=== PATIENT | female | born 1985 | race American Indian/Alaskan Native ===

== ENCOUNTER 2019-01-13 15:48 | Emergency (ER) | payer SELFPAY ==
[2019-01-13 15:58] VITALS: BP 147/93
--- NOTE | 2019-01-13 15:58 | Event Note ---
ED Screening Note ED Screening Note: pt presents for upper back pain that began 3 hours ago feels like a heaviness, states that when she takes a deep breath pain goes down the back no fall, injury, or trauma no numbness or weakness no PMHx LNMP: 01/08/19 no daily meds allergy to morphine: itching,rash +smoker +drinker no drug use This initial assessment/diagnostic orders/clinical plan/treatment(s) is/are subject to change based on patients health status, clinical progression and re- assessment by fellow clinical providers in the ED. Further treatment and workup at subsequent clinical providers discretion. Patient/guardian urged not to elope from the ED as their condition may be serious if not clinically assessed and managed. Initial orders include: XR T-spine
--- NOTE | 2019-01-13 17:22 | XRay Report ---
PROCEDURE: XR SPINE THORACIC 3V TECHNIQUE: AP and lateral views of the thoracic spine. HISTORY: upper back pain COMPARISONS: None . FINDINGS: The vertebral body heights and disc spaces are well maintained. The alignment is normal. Pedicles are intact bilaterally at all levels. The paraspinal soft tissues are unremarkable. IMPRESSION: Normal thoracic spine. This document is electronically signed by Blanca Parra MD., January 13 2019 05:20:50 PM ET
[2019-01-13] MEDS ORDERED: DELTASONE PO ONE (17:32)
[2019-01-13] MEDS ORDERED: TORADOL IM ONE (17:32)
--- NOTE | 2019-01-13 17:40 | Emergency Department Report ---
ED Back Pain/Injury HPI - General Chief Complaint: Back Pain/Injury Stated Complaint: BACK PAIN/ELI Time Seen by Provider: 01/13/19 15:56 Source: patient Limitations: No Limitations - History of Present Illness Initial Comments: This is a 33-year-old female nontoxic, well nourished in appearance, no acute signs of distress presents to the ED with c/o of acute on chronic intermittent upper back pain. Patient stated that the past 2 days he was moving and developed this pain. Patient denies any radiation of pain. Patient stated has worse pain with movement and deep breathes otherwise denies any SOB and ELI. Patient denies any trauma. Denies any bladder or bowel instability. Patient denies any urinary symptoms. Denies any fever, chills, nausea, vomiting, headache, stiff neck, chest pain or shortness of breath. Patient denies any numbness or tingling. Allergies to morphine with no significant PMH. MD Complaint: back pain -: days(s) Similar Symptoms Previously: Yes Radiation: none Severity: mild Severity scale (0 -10): 3 Quality: aching Consistency: intermittent Improves With: sitting upright, other (rest) Worsens With: movement, deep breaths/cough Context: while lifting, turning/twisting Associated Symptoms: denies other symptoms. denies: confusion, weakness, chest pain, numbness, difficulty walking, cough, difficulty urinating, diaphoresis, incontinence, fever/chills, constipation, headaches, abdominal pain, loss of appetite, malaise, nausea/vomiting, rash, seizure, shortness of breath, syncope - Related Data Previous Rx's Medication Instructions Recorded Last Taken Type Cyclobenzaprine [Flexeril] 10 mg PO QHS PRN #10 tablet 01/13/19 Unknown Rx Ibuprofen [Motrin] 600 mg PO Q8H PRN #20 tablet 01/13/19 Unknown Rx Allergies Allergy/AdvReac Type Severity Reaction Status Date / Time morphine Allergy Hives Verified 01/13/19 15:49 ED Review of Systems ROS: Stated complaint: BACK PAIN/ELI Other details as noted in HPI Constitutional: denies: chills, fever Eyes: denies: eye pain, eye discharge, vision change ENT: denies: ear pain, throat pain Respiratory: denies: cough, shortness of breath, wheezing Cardiovascular: denies: chest pain, palpitations Endocrine: no symptoms reported Gastrointestinal: denies: abdominal pain, nausea, diarrhea Genitourinary: denies: urgency, dysuria, discharge Musculoskeletal: back pain. denies: joint swelling, arthralgia Skin: denies: rash, lesions Neurological: denies: headache, weakness, paresthesias Psychiatric: denies: anxiety, depression Hematological/Lymphatic: denies: easy bleeding, easy bruising ED Past Medical Hx - Past Medical History Previous Medical History?: No - Surgical History Additional Surgical History: BREAST REDUCTION KNEE SURGER CONE BIOPSY - Social History Smoking Status: Current Every Day Smoker Substance Use Type: Alcohol - Medications Home Medications: Home Medications Medication Instructions Recorded Confirmed Last Taken Type Cyclobenzaprine [Flexeril] 10 mg PO QHS PRN #10 tablet 01/13/19 Unknown Rx Ibuprofen [Motrin] 600 mg PO Q8H PRN #20 tablet 01/13/19 Unknown Rx ED Physical Exam - General Limitations: No Limitations General appearance: alert, in no apparent distress - Head Head exam: Present: atraumatic, normocephalic - Eye Eye exam: Present: normal appearance - Neck Neck exam: Present: normal inspection, full ROM. Absent: tenderness, meningismus, lymphadenopathy - Respiratory Respiratory exam: Present: normal lung sounds bilaterally. Absent: respiratory distress, wheezes, rales, rhonchi, stridor, chest wall tenderness, accessory muscle use, decreased breath sounds, prolonged expiratory - Cardiovascular Cardiovascular Exam: Present: regular rate, normal rhythm, normal heart sounds. Absent: bradycardia, tachycardia, irregular rhythm, systolic murmur, diastolic murmur, rubs, gallop - Extremities Exam Extremities exam: Present: normal inspection, full ROM - Back Exam Back exam: Present: normal inspection, full ROM, paraspinal tenderness (throacic paraspinal area). Absent: tenderness, CVA tenderness (R), CVA tenderness (L), muscle spasm, vertebral tenderness, rash noted - Expanded Back Exam Expanded Back exam: Negative Straight Leg Raising: Left, Right - Neurological Exam Neurological exam: Present: alert, oriented X3, normal gait - Psychiatric Psychiatric exam: Present: normal affect, normal mood - Skin Skin exam: Present: warm, dry, intact, normal color. Absent: rash ED Course Vital Signs 01/13/19 15:56 Temperature 97.9 F Pulse Rate 86 Respiratory 20 Rate Blood Pressure 147/93 O2 Sat by Pulse 98 Oximetry - Reevaluation(s) Reevaluation #1: 01/13/19 17:38 Patient is speaking in full sentences with no signs of distress noted. ED Medical Decision Making - Medical Decision Making This is a 33-year-old female that presents with upper back strain. Patient is stable was examined by me. There is no spinal tenderness. There is no cauda equina syndrome during examination. No bladder or bowel instability. Wells creteris for PE/DVT: 0.0 points Low risk group: 1.3% chance of PE in an ED population. Another study assigned scores ? 4 as PE Unlikely and had a 3% incidence of PE. Patient received Toradol 60 mg IM and predenisone 60 mg in the ED which stated that her symptoms has resolved and subsided. Patient is discharged with muscle relaxant and Motrin. Patient was instructed not to operate any machinery while taking muscle relaxant as they cause her drowsiness. Patient was referred to Follow-up with a primary care doctor in 3-5 days or if symptoms worsen and continue return to emergency room as soon as possible. At time of discharge, the patient does not seem toxic or ill in appearance. No acute signs of distress noted. Patient agrees to discharge treatment plan of care. No further questions noted by the patient. This chart is dictated with using [employer] Critical care attestation.: If time is entered above; I have spent that time in minutes in the direct care of this critically ill patient, excluding procedure time. ED Disposition Clinical Impression: Upper back strain Disposition: DC-01 TO HOME OR SELFCARE Is pt being admited?: No Does the pt Need Aspirin: No Condition: Stable Instructions: Muscle Strain (ED), Cyclobenzaprine (By mouth) Additional Instructions: Follow-up with your primary care doctor in 3-5 days or if symptoms worsen such as bladder or bowel stability, chest pain, short of breath, numbness or tingling sensation in extremities, headache, dizziness, visual changes, nausea vomiting, or abdominal pain, return back to emergency room as was possible. Take ibuprofen and Flexeril as prescribed. Do not operate heavy machinery while taking Flexeril due to sedation Prescriptions: Cyclobenzaprine [Flexeril] 10 mg PO QHS PRN #10 tablet PRN Reason: Muscle Spasm Ibuprofen [Motrin] 600 mg PO Q8H PRN #20 tablet PRN Reason: Pain Referrals: PRIMARY CARE, [Referring] - 3-5 Days CATRINA COREY MD [Staff Physician] - 3-5 Days [facility] [Outside] - 3-5 Days [facility] [Outside] - 3-5 Days Forms: Work/School Release Form(ED)
== END 2019-01-13 18:39 | disposition home or self-care (01) ==
LOC: ED 15:48
DX: S29.012A Strain of muscle and tendon of back wall of thorax, initial encounter (principal); Z88.6 Allergy status to analgesic agent; X50.9XXA Other and unspecified overexertion or strenuous movements or postures, initial encounter; Y93.89 Activity, other specified; Y92.89 Other specified places as the place of occurrence of the external cause; Y99.8 Other external cause status
CPT/HCPCS: 72072; 96372; 99283; J1885; J7512

== ENCOUNTER 2019-05-14 11:15 | Emergency (ER) | payer SELFPAY ==
[2019-05-14 11:22] VITALS: BP 128/86
[2019-05-14] MEDS ORDERED: IBUPROFEN 800 MG TAB PO ONE (11:38)
--- NOTE | 2019-05-14 11:50 | Emergency Department Report ---
Upper Extremity - HPI Chief Complaint: Extremity Injury, Upper Stated Complaint: LFT PINKY SWELLING/PAIN Time Seen by Provider: 05/14/19 11:33 Upper Extremity: Left Hand, Left Little Finger Occurred When: Today Mechanism: Hit with Object Severity: severe Symptoms: Yes Pain with Movement, Yes Deformity, Yes Limited Range of Movement, Yes Swelling, No Numbness, No Weakness, No Bruising/Ecchymosis, No Laceration or Abrasion Other History: 33-year-old -[place] female presents to the emergency room complaining of left hand fifth digit pain. Patient reports that she was playing basketball and when she jumped LOC the ball the ball injured her hand. Patient reports no past medical history does not take any medications on a daily basis and has an allergy to morphine. Patient's had past surgical history of anterior cruciate ligament repair and breast reduction. Patient reports her last menstrual period was 05/04/2019. Patient reports her pain as a 10 out of 10. ED Review of Systems ROS: Stated complaint: LFT PINKY SWELLING/PAIN Other details as noted in HPI Comment: All other systems reviewed and negative ED Past Medical Hx - Past Medical History Previous Medical History?: No - Surgical History Past Surgical History?: Yes Additional Surgical History: BREAST REDUCTION KNEE SURGER CONE BIOPSY, ACL RECONSTRUCTION - Social History Smoking Status: Current Every Day Smoker Substance Use Type: Alcohol - Medications Home Medications: Home Medications Medication Instructions Recorded Confirmed Last Taken Type Cyclobenzaprine [Flexeril] 10 mg PO QHS PRN #10 tablet 01/13/19 Unknown Rx Ibuprofen [Motrin 600 MG tab] 600 mg PO Q8H PRN #20 tablet 05/14/19 Unknown Rx Upper Extremity Exam - Exam General: Vital signs noted. No distress. Alert and acting appropriately. ED Course Vital Signs 05/14/19 11:17 Temperature 97.7 F Pulse Rate 105 H Respiratory 18 Rate Blood Pressure 128/86 O2 Sat by Pulse 99 Oximetry - Orthopedic Fracture Reduction Fracture #1 Consent Obtained: verbal consent Time Out Performed: Yes Side: left Fracture Reduction Location: finger Analgesia: digital block Technique: direct manipulation Post-Reduction Neuro Exam: intact Splint Applied: Yes Patient Tolerated Procedure: well ED Medical Decision Making - Radiology Data Radiology results: report reviewed Patient: MONICA FISHER MR#: [id number] : 1985 Acct:[id number] Age/Sex: 33 / F ADM Date: 05/14/19 Loc: ED Attending Dr: Ordering Physician: JHOAN FISHER Date of Service: 05/14/19 Procedure(s): XR hand 3+V LT Accession Number(s): [id number] cc: JHOAN FISHER Fluoro Time In Minutes: LEFT HAND 3 VIEWS INDICATION / CLINICAL INFORMATION: left hand injury with pain and swelling. COMPARISON: None available. FINDINGS: There is a tiny avulsion fracture fragment along the volar aspect of the little finger PIP joint. The middle phalanx is dislocated posteriorly with respect to the proximal phalanx. IMPRESSION: Fracture dislocation of little finger PIP joint. Post reduction radiographs recommended. Signer Name: Jose Beasley MD Signed: 05/14/2019 12:18 PM Workstation Name: [id number] Transcribed By: TL Dictated By: Jose Beasley MD Electronically Authenticated By: Jose Beasley MD Signed Date/Time: 05/14/191217 DD/ 16 TD/TT: Patient: MONICA FISHER MR#: [id number] : 1985 Acct:[id number] Age/Sex: 33 / F ADM Date: 05/14/19 Loc: ED Attending Dr: Ordering Physician: JHOAN FISHER Date of Service: 05/14/19 Procedure(s): XR finger(s) 2+V LT Accession Number(s): [id number] cc: JHOAN FISHER Fluoro Time In Minutes: LEFT LITTLE FINGER, 3 VIEWS, POSTREDUCTION INDICATION / CLINICAL INFORMATION: post reduction x-ray. COMPARISON: Left hand radiographs from earlier today FINDINGS: Post reduction radiographs of the little finger shows successful reduction of the PIP joint dislocation. There are a few tiny pieces of avulsed bone surrounding the PIP joint of the little finger. No additional fractures are noted. Alignment is normal. IMPRESSION: There are a few tiny avulsion fractures on the radial aspect of the PIP joint. Alignment is normal. Signer Name: Polly Graves MD Signed: 05/14/2019 2:46 PM Workstation Name: [id number] Transcribed By: Dictated By: Polly Graves MD Electronically Authenticated By: Polly Graves MD Signed Date/Time: 05/14/191445 DD/ 43 TD/TT: - Medical Decision Making 33-year-old -[place] female presents to the emergency room complaining of left hand fifth digit pain. Patient reports that she was playing basketball and when she jumped LOC the ball the ball injured her hand. Patient reports no past medical history does not take any medications on a daily basis and has an allergy to morphine. Patient's had past surgical history of anterior cruciate ligament repair and breast reduction. Patient reports her last menstrual period was 05/04/2019. Patient reports her pain as a 10 out of 10. X-ray of the left hand has been ordered. Ibuprofen 800 mg for pain management has been ordered. Critical care attestation.: If time is entered above; I have spent that time in minutes in the direct care of this critically ill patient, excluding procedure time. ED Disposition Clinical Impression: Finger fracture, left Disposition: DC-01 TO HOME OR SELFCARE Is pt being admited?: No Does the pt Need Aspirin: No Condition: Stable Instructions: Finger Fracture (ED) Prescriptions: Ibuprofen [Motrin 600 MG tab] 600 mg PO Q8H PRN #20 tablet PRN Reason: Pain Referrals: KARIS GAN MD [Staff Physician] - 3-5 Days Forms: Work/School Release Form(ED)
--- NOTE | 2019-05-14 12:23 | XRay Report ---
LEFT HAND 3 VIEWS INDICATION / CLINICAL INFORMATION: left hand injury with pain and swelling. COMPARISON: None available. FINDINGS: There is a tiny avulsion fracture fragment along the volar aspect of the little finger PIP joint. The middle phalanx is dislocated posteriorly with respect to the proximal phalanx. IMPRESSION: Fracture dislocation of little finger PIP joint. Post reduction radiographs recommended. Signer Name: Jose Beasley MD Signed: 05/14/2019 12:18 PM Workstation Name: [id number]
[2019-05-14] MEDS ORDERED: LIDOCAINE (1%) 10 MG/1 ML VIAL 20 ML MDV INFILTRATI ONE (12:57)
--- NOTE | 2019-05-14 14:50 | XRay Report ---
LEFT LITTLE FINGER, 3 VIEWS, POSTREDUCTION INDICATION / CLINICAL INFORMATION: post reduction x-ray. COMPARISON: Left hand radiographs from earlier today FINDINGS: Post reduction radiographs of the little finger shows successful reduction of the PIP joint dislocati on. There are a few tiny pieces of avulsed bone surrounding the PIP joint of the little finger. No ad ditional fractures are noted. Alignment is normal. IMPRESSION: There are a few tiny avulsion fractures on the radial aspect of the PIP joint. Alignment is normal. Signer Name: Polly Graves MD Signed: 05/14/2019 2:46 PM Workstation Name: [id number]
== END 2019-05-14 15:04 | disposition home or self-care (01) ==
LOC: ED 11:15
DX: S62.617A Displaced fracture of proximal phalanx of left little finger, initial encounter for closed fracture (principal); F17.200 Nicotine dependence, unspecified, uncomplicated; Z98.890 Other specified postprocedural states; Z79.899 Other long term (current) drug therapy; Z88.6 Allergy status to analgesic agent; X58.XXXA Exposure to other specified factors, initial encounter; Y93.67 Activity, basketball; Y92.89 Other specified places as the place of occurrence of the external cause; Y99.8 Other external cause status
CPT/HCPCS: 99283

== ENCOUNTER 2019-08-06 11:52 | Emergency (ER) | payer SELFPAY ==
[2019-08-06 13:21] VITALS: BP 133/97
== END 2019-08-06 15:51 | disposition left against medical advice (07) ==
LOC: ED 11:52
DX: M54.6 Pain in thoracic spine (principal); Z53.21 Procedure and treatment not carried out due to patient leaving prior to being seen by health care provider

== ENCOUNTER 2020-11-14 09:43 | Emergency (ER) | payer SELFPAY ==
[2020-11-14 09:51] VITALS: BP 127/93
--- NOTE | 2020-11-14 11:31 | XRay Report ---
CHEST PA AND LATERAL VIEWS INDICATION: chest pain. COMPARISON: None FINDINGS: Support devices: None Heart: Normal Lungs/Pleura: Increased parenchymal density in the lingula, worrisome for developing pneumonia. Right lung is clear. No pleural fluid. IMPRESSION: 1. Lingular disease, worrisome for developing pneumonia. Suggest close follow-up. Signer Name: Ham Coe MD Signed: 11/14/2020 11:27 AM Workstation Name: [id number]
--- NOTE | 2020-11-14 11:43 | Emergency Department Report ---
Minor Respiratory - HPI Chief Complaint: Chest Pain Stated Complaint: CONGESTION, FEVER Time Seen by Provider: 11/14/20 10:51 Duration: 2 Days Pain Location: Chest Severity: mild Minor Respiratory: Yes Sore Throat, Yes Able to Tolerate Fluids, Yes Cough, Yes Shortness of Breath, No Rhinorrhea, No Ear Pain, No Sick Contacts, No Hemoptysis, No Chest Pain, No Fever Other History: 35 YO ASTHMATIC COMES TO ER WITH COUGH AND INC WHEEZING FOR 2 DAYS DESPITE HER USUAL MEDS. NO FEVER. NO CHILLS. NO COVID19 KNOWN EXPOSURE. SOB IS WITH WHEEZING. PAIN IS WITH COUGH. AMBULATORY AND NON ILL APPEARING ON ARRIVAL TO ER. ED Review of Systems ROS: Stated complaint: CONGESTION, FEVER Other details as noted in HPI Comment: All other systems reviewed and negative ED Past Medical Hx - Past Medical History Hx GERD: Yes Additional medical history: cervical ca - Surgical History Additional Surgical History: BREAST REDUCTION KNEE SURGER CONE BIOPSY, ACL REC ONSTRUCTION - Family History Family history: no significant - Social History Smoking Status: Current Every Day Smoker Substance Use Type: None - Medications Home Medications: Home Medications Medication Instructions Recorded Confirmed Last Taken Type Cyclobenzaprine [Flexeril] 10 mg PO QHS PRN #10 tablet 01/13/19 Unknown Rx Ibuprofen [Motrin 600 MG tab] 600 mg PO Q8H PRN #20 tablet 05/14/19 Unknown Rx Albuterol Sulfate [Proair 90 mcg IH QID PRN #1 aer.pow.ba 11/14/20 Unknown Rx Respiclick] Azithromycin [Zithromax Z-ZANDER] 250 mg PO DAILY #6 tablet 11/14/20 Unknown Rx Benzonatate [Tessalon Perles] 100 mg PO Q12H PRN #12 capsule 11/14/20 Unknown Rx Cetirizine HCl [ZyrTEC] 10 mg PO DAILY #30 capsule 11/14/20 Unknown Rx Fluticasone [Flonase] 1 spray NS QDAY #1 bottle 11/14/20 Unknown Rx predniSONE [Deltasone] 20 mg PO DAILY #5 tablet 11/14/20 Unknown Rx Minor Respiratory Exam - Exam General: Vital signs noted. No distress. Alert and acting appropriately. HEENT: Yes Moist Mucous Membranes, No Pharyngeal Erythema, No Pharyngeal Exudates, No Rhinorrhea, No Conjuctival Injection, No Frontal Tenderness, No Maxillary Tenderness Ear: Neither TM Bulge, Neither TM Erythema, Neither EAC Pain, Neither EAC Discharge Neck: Yes Supple, No Adenopathy Lungs: Yes Good Air Exchange, Yes Ronchi, No Wheezes, No Stridor, No Cough, No Labored Respirations, No Retractions, No Use of Accessory Muscles, No Other Abnormal Lung Sounds Heart: Yes Regular, No Murmur Abdomen: Yes Normal Bowel Sounds, No Tenderness, No Peritoneal Signs Skin: No Rash, No Edema Neurologic: Alert and oriented, no deficits. Musculoskeletal: Unremarkable. ED Course Vital Signs 11/14/20 09:48 Temperature 99.0 F Pulse Rate 99 H Respiratory 16 Rate Blood Pressure 127/93 O2 Sat by Pulse 98 Oximetry ED Medical Decision Making - EKG Data EKG shows normal: sinus rhythm Rate: normal - EKG Data When compared to previous EKG there are: no significant change Interpretation: no acute changes - Radiology Data Radiology results: report reviewed, image reviewed XRAY NEG OXYGEN SAT SP WALKING 100 ON ROOM AIR 12 LEAD NORMAL DC HOME WITH DC PLAN OF CARE INCLUDING PCP FOLLOW UP REFERRALS GIVEN Vital Signs 11/14/20 09:48 Temperature 99.0 F Pulse Rate 99 H Respiratory 16 Rate Blood Pressure 127/93 O2 Sat by Pulse 98 Oximetry PT VERBALIZES UNDERSTANDING OF PLAN OF CARE - Differential Diagnosis ASTHMA AE/ PNA/BRONCHITIS Critical care attestation.: If time is entered above; I have spent that time in minutes in the direct care of this critically ill patient, excluding procedure time. ED Disposition Clinical Impression: URI (upper respiratory infection), Bronchitis, Smoker, Asthma with acute exacerbation Disposition: DC-01 TO HOME OR SELFCARE Is pt being admited?: No Does the pt Need Aspirin: No Condition: Stable Instructions: Asthma, Adult, [id number], Chronic Bronchitis (ED) Additional Instructions: MEDS ORDERED FOLLOW UP WITH PCP TO BE SURE YOU ARE GETTING BETTER Prescriptions: predniSONE [Deltasone] 20 mg PO DAILY #5 tablet Fluticasone [Flonase] 1 spray NS QDAY #1 bottle Albuterol Sulfate [Proair Respiclick] 90 mcg IH QID PRN #1 aer.pow.ba PRN Reason: Wheezing Benzonatate [Tessalon Perles] 100 mg PO Q12H PRN #12 capsule PRN Reason: Cough Azithromycin [Zithromax Z-ZANDER] 250 mg PO DAILY #6 tablet Cetirizine HCl [ZyrTEC] 10 mg PO DAILY #30 capsule Referrals: CAROLINE COBURN MD [Staff Physician] - 3-5 Days Time of Disposition: 11:41
--- NOTE | 2020-11-16 11:17 | Electrocardiograph Report ---
[facility] Test Date: 2020-11-14 Test Time: 09:54:56 Pat Name: MONICA FISHER Department: Room: Gender: F [employer]: : 1985 Requested By: CATRINA CRUZ Order Number: [id number] Reading MD: Smith Chavez Measurements Intervals [place] Rate: 92 P: 53 LA: 167 QRS: -20 QRSD: 66 T: 27 QT: 333 QTc: 412 Interpretive Statements Sinus rhythm Probable left atrial enlargement No previous ECG available for comparison Electronically Signed On 11-16-2020 11:17:25 EDT by Smith Chavez
== END 2020-11-14 12:17 | disposition home or self-care (01) ==
LOC: ED 09:43
DX: J45.901 Unspecified asthma with (acute) exacerbation (principal); J06.9 Acute upper respiratory infection, unspecified; F17.200 Nicotine dependence, unspecified, uncomplicated; K21.9 Gastro-esophageal reflux disease without esophagitis; Z79.899 Other long term (current) drug therapy; Z98.890 Other specified postprocedural states; Z88.6 Allergy status to analgesic agent
CPT/HCPCS: 71046; 93005

== ENCOUNTER 2021-08-19 11:30 | Emergency (ER) | payer OTHER ==
[2021-08-19] MEDS ORDERED: IBUPROFEN 400 MG TAB PO ONE (14:15)
[2021-08-19] MEDS ORDERED: ACETAMINOPHEN 325 MG TAB PO ONE (14:15)
--- NOTE | 2021-08-19 14:16 | Emergency Department Report ---
ED General Adult HPI - General Chief complaint: Upper Respiratory Infection Stated complaint: FLU/COVID SYMPTOMS PUI?: Yes Time Seen by Provider: 08/19/21 14:05 Source: patient, RN notes reviewed, old records reviewed Mode of arrival: Ambulatory Limitations: No Limitations - History of Present Illness Initial comments: The patient was evaluated in the emergency department for symptoms described in the history of present illness. He/she was evaluated in the context of the global COVID-19 pandemic, which necessitated consideration that the patient might be at risk for infection with the virus that causes COVID-19. Institutional protocols and algorithms that pertain to the evaluation of patients at risk for COVID-19 are in a state of rapid change based on information released by regulatory bodies including the CDC and federal and state organizations. These policies and algorithms were followed during the patient's care in the emergency department. Please note that these policies, procedures and recommendations changed on a rapid basis. During the entire history and physical examination, I had a complete personal protective equipment This patient is a 36-year-old female. She is not vaccinated against COVID-19. She states that she is not . She presents to the ER today on day 5/6 of cold/flu/Covid symptoms. Reports headache, chest wall pain with cough, body aches, malaise and fatigue, no significant change in taste or smell, no dysuria, subjective fevers at home, low-grade temperature at home. Reports minimal to no relief with [id number] medications such as aspirin, Tylenol and ibuprofen -: Gradual, days(s) Location: chest, back, left, right, upper extremity, lower extremity Quality: aching Consistency: constant Improves with: none Worsens with: movement - Related Data Previous Rx's Medication Instructions Recorded Last Taken Type Ibuprofen [Motrin 600 MG tab] 600 mg PO Q8H PRN #20 tablet 05/14/19 Unknown Rx Albuterol Sulfate [Proair 90 mcg IH QID PRN #1 aer.[email or web address] 11/14/20 Unknown Rx Respiclick] Benzonatate [Tessalon Perles] 100 mg PO Q12H PRN #12 capsule 11/14/20 Unknown Rx Acetaminophen [Non-Aspirin Extra 500 mg PO Q6HR PRN #30 tablet 08/19/21 Unknown Rx Strength] Ibuprofen [Motrin] 600 mg PO Q8H PRN #30 tablet 08/19/21 Unknown Rx Metoclopramide [Reglan] 10 mg PO QID PRN #30 tablet 08/19/21 Unknown Rx Nicotine Polacrilex [Nicotine Gum] 4 mg BC PRN #1 pack 08/19/21 Unknown Rx Allergies Allergy/AdvReac Type Severity Reaction Status Date / Time morphine Allergy Hives Verified 01/13/19 15:49 ED Review of Systems ROS: Stated complaint: FLU/COVID SYMPTOMS Other details as noted in HPI Constitutional: fever, malaise, weakness Eyes: denies: eye discharge Respiratory: cough, shortness of breath Cardiovascular: other (Chest wall pain) Gastrointestinal: denies: vomiting Genitourinary: denies: dysuria Musculoskeletal: back pain, arthralgia, myalgia Neurological: headache, weakness ED Past Medical Hx - Past Medical History Previous Medical History?: Yes Hx GERD: Yes Additional medical history: cervical ca - Surgical History Past Surgical History?: Yes Additional Surgical History: BREAST REDUCTION KNEE SURGER CONE BIOPSY, ACL RECONSTRUCTION - Social History Smoking Status: Current Every Day Smoker Substance Use Type: None - Medications Home Medications: Home Medications Medication Instructions Recorded Confirmed Last Taken Type Ibuprofen [Motrin 600 MG tab] 600 mg PO Q8H PRN #20 tablet 05/14/19 Unknown Rx Albuterol Sulfate [Proair 90 mcg IH QID PRN #1 aer.pow.ba 11/14/20 Unknown Rx Respiclick] Benzonatate [Tessalon Perles] 100 mg PO Q12H PRN #12 capsule 11/14/20 Unknown Rx Acetaminophen [Non-Aspirin Extra 500 mg PO Q6HR PRN #30 tablet 08/19/21 Unknown Rx Strength] Ibuprofen [Motrin] 600 mg PO Q8H PRN #30 tablet 08/19/21 Unknown Rx Metoclopramide [Reglan] 10 mg PO QID PRN #30 tablet 08/19/21 Unknown Rx Nicotine Polacrilex [Nicotine Gum] 4 mg BC PRN #1 pack 08/19/21 Unknown Rx ED Physical Exam - General Limitations: No Limitations General appearance: alert, in no apparent distress - Head Head exam: Present: atraumatic, normocephalic - Eye Eye exam: Present: normal appearance, EOMI. Absent: nystagmus - ENT ENT exam: Present: normal exam, normal orophraynx, mucous membranes moist, normal external ear exam - Neck Neck exam: Present: normal inspection, full ROM. Absent: tenderness, meningismus - Respiratory Respiratory exam: Present: chest wall tenderness, other (Pulmonary auscultation not performed secondary to lack of disposable stethoscope). Absent: stridor (Pulmonary auscultation not performed secondary to lack of disposable stethoscope) - Cardiovascular Cardiovascular Exam: Present: other (Cardiac auscultation not performed secondary to lack of disposable stethoscope) - GI/Abdominal GI/Abdominal exam: Present: soft. Absent: distended, tenderness, guarding, rebound, rigid - Extremities Exam Extremities exam: Present: normal inspection, full ROM, other (2+ pulses noted in the bilateral upper and lower extremities. There is no palpable cord. negative Homans sign. Muscular compartments are soft. The pelvis is stable.). Absent: pedal edema, calf tenderness - Back Exam Back exam: Present: normal inspection, full ROM. Absent: tenderness, CVA tenderness (R), CVA tenderness (L), paraspinal tenderness, vertebral tenderness - Neurological Exam Neurological exam: Present: alert, normal gait, other (No facial droop. Tongue midline. Extraocular movements intact bilaterally. Facial sensation intact to light touch in V1, V2, V3 distribution bilaterally. 5 and a 5 strength in 4 extremities. Sensation intact to light touch in 4 extremities.). Absent: motor sensory deficit - Psychiatric Psychiatric exam: Present: normal affect, normal mood - Skin Skin exam: Present: warm, dry, intact, normal color. Absent: rash ED Course Vital Signs 08/19/21 14:02 Temperature 98.5 F Pulse Rate 85 Respiratory 20 Rate Blood Pressure 132/100 O2 Sat by Pulse 100 Oximetry - Reevaluation(s) Reevaluation #1: 08/19/21 14:37 Differential diagnosis, including but not limited to: Influenza, COVID-19, viral syndrome, costochondritis, encounter for tobacco cessation Assessment and plan: 36-year-old female, who was afebrile, with reassuring vital signs, with a benign and unremarkable physical examination, clear lungs on chest x-ray, not hypoxic, presenting on day 5/6 of nonspecific viral syndrome, not COVID-19 vaccinated. No utility in testing emergently for influenza, she is young, not immune compromised, more than 72 hours into her clinical illness, and there is no utility in initiation of Tamiflu/antiviral therapy at this time. Similar rationale for Covid, she is not hypoxic, and this emergency room does not possess or have access to rapid Covid testing. Patient also interested in tobacco cessation, reports that she is smoked 1 pack/day for "many years." Spent 10 minutes counseling patient appropriately regarding tobacco cessation. She does not appear to have an emergent medical condition at this time. As needed medications, outpatient follow-up. Return precautions reviewed. ED Medical Decision Making - Lab Data Vital Signs 08/19/21 14:02 Temperature 98.5 F Pulse Rate 85 Respiratory 20 Rate Blood Pressure 132/100 O2 Sat by Pulse 100 Oximetry - EKG Data -: EKG Interpreted by Me Rate: tachycardia - EKG Data Interpretation: unchanged when compared t (Unchanged from prior EKG from November 2020) 08/19/21 14:45 EKG is interpreted at 14: 40 Sinus rhythm, rate 110 bpm. Left axis deviation, normal P wave axis. Motion artifact is noted, QTC 4 4 7 ms. Otherwise, unremarkable intervals, this EKG is not a STEMI. - Radiology Data Radiology results: report reviewed, image reviewed interpreted by me: 2 view x-ray of the chest, interpreted by myself, clear lungs, no infiltrate, no pneumothorax, normal bony anatomy CHEST 2 VIEWS INDICATION: Cough and chest wall pain. COMPARISON: 11/14/2020. FINDINGS: Support devices: None. Heart: Within normal limits. Lungs/Pleura: No acute air space or interstitial disease. No significant pleural effusion. IMPRESSION: No acute findings. Signer Name: Anshul Saunders MD Signed: 08/19/2021 1:42 PM Workstation Name: [id number] Critical care attestation.: If time is entered above; I have spent that time in minutes in the direct care of this critically ill patient, excluding procedure time. ED Disposition Clinical Impression: Encounter for tobacco use cessation counseling, Viral syndrome, Chest wall pain, Suspected COVID-19 virus infection, COVID-19 vaccination not done Disposition: 01 HOME / SELF CARE / HOMELESS Is pt being admited?: No Does the pt Need Aspirin: No Condition: Good Instructions: Viral Respiratory Infection, Oqsy-Ol-Monh, Costochondritis Additional Instructions: As we discussed, the patient most likely has novel coronavirus/COVID. the symptoms of COVID will typically persist 10 to 14 days. There is no cure at this time for COVID. Please make certain to self isolate and self quarantine, follow-up with an outpatient primary care doctor within the next 3 to 5 days, wash hands with soap and water frequently, thoroughly and often, patient may take the prescribed medications as needed and directed. Advance diet and drink plenty of fluids as tolerated. Avoid interactions with the very elderly, very young, and those with chronic medical conditions. Return to the emergency room right away with new pain, worsening pain, migration of pain, projectile vomiting, change in mental status, confusion, inability to tolerate liquid feeds, new, worsened or different symptoms not present on the initial emergency room evaluation. Recommend that patient discontinue tobacco consumption. Recommend outpatient testing for COVID-19. Advance diet as tolerated. Recommend that patient complete outpatient COVID-19 vaccination series when symptoms improved. Prescriptions: Ibuprofen [Motrin] 600 mg PO Q8H PRN #30 tablet PRN Reason: Pain Nicotine Polacrilex [Nicotine Gum] 4 mg BC PRN #1 pack Acetaminophen [Non-Aspirin Extra Strength] 500 mg PO Q6HR PRN #30 tablet PRN Reason: Pain , Severe (7-10) Metoclopramide [Reglan] 10 mg PO QID PRN #30 tablet PRN Reason: Nausea Referrals: [facility] [Provider Group] - 7-10 days
--- NOTE | 2021-08-19 14:46 | XRay Report ---
CHEST 2 VIEWS INDICATION: Cough and chest wall pain. COMPARISON: 11/14/2020. FINDINGS: Support devices: None. Heart: Within normal limits. Lungs/Pleura: No acute air space or interstitial disease. No significant pleural effusion. IMPRESSION: No acute findings. Signer Name: Anshul Saunders MD Signed: 08/19/2021 2:42 PM Workstation Name: [id number]
[2021-08-19 15:34] VITALS: BP 128/97
--- NOTE | 2021-08-20 10:01 | Electrocardiograph Report ---
[facility] Test Date: 2021-08-19 Test Time: 14:40:26 Pat Name: MONICA FISHER Department: Room: Gender: F Party Coordinator: TECH : 1985 Requested By: BEBA NOVAK Order Number: [id number] Reading MD: Jared Starr Measurements Intervals [place] Rate: 110 P: 51 GA: 155 QRS: -3 QRSD: 63 T: -6 QT: 330 QTc: 447 Interpretive Statements Sinus tachycardia Low voltage, precordial leads Consider anterior infarct Compared to ECG 11/14/2020 09:54:56 rate is faster,otherwise no signficant change noted. Electronically Signed On 08-20-2021 10:00:37 EST by Jared Starr
== END 2021-08-19 15:34 | disposition home or self-care (01) ==
LOC: ED 11:30
DX: B34.9 Viral infection, unspecified (principal); R07.9 Chest pain, unspecified; Z71.6 Tobacco abuse counseling; Z20.822 Contact with and (suspected) exposure to COVID-19; Z88.6 Allergy status to analgesic agent
CPT/HCPCS: 71046; 93005; 99283